=== PATIENT | male | born 1965 | race Caucasian/White ===

== ENCOUNTER 2023-03-11 19:29 | Emergency (ER) | payer BC, OTHER ==
[~2023-03-11] VITALS: Ht 180.3 cm; Wt 83.9 kg
[2023-03-11] MEDS ORDERED: CEPH500T PO (20:33)
[2023-03-11] MEDS ORDERED: HYDR-3972 PO (20:38)
[2023-03-11 20:51] VITALS: BP 128/88; TEMP 98; O2SAT 97
[2023-03-11] MEDS ORDERED: HYDROCODONE/APAP 5/325MG TABLET PO ONE (21:00)
== END 2023-03-11 20:52 | disposition home or self-care (01) ==
LOC: ER 19:33
DX: S61.233A Puncture wound without foreign body of left middle finger without damage to nail, initial encounter (principal); F41.9 Anxiety disorder, unspecified; F32.A Depression, unspecified; W45.8XXA Other foreign body or object entering through skin, initial encounter; Y93.89 Activity, other specified; Y92.89 Other specified places as the place of occurrence of the external cause; Y99.8 Other external cause status
CPT/HCPCS: 73140-TC